=== PATIENT | female | born 1930 | race Caucasian/White ===

== ENCOUNTER 2016-09-07 11:03 | Emergency (ER) | payer MEDICARE, BC ==
--- NOTE | 2016-09-07 12:10 | UC ---
Skin Complaint HPI - HPI Summary HPI Summary: 86 YEAR OLD RASH ON THE DORSUM OF BOTH HANDS. - History of Current Complaint Time Seen by Provider: 09/07/16 12:03 Stated Complaint: RASH Onset Severity: Moderate Current Severity: Moderate - Allergy/Home Medications Allergies/Adverse Reactions: Allergies Allergy/AdvReac Type Severity Reaction Status Date / Time No Known Allergies Allergy Verified 09/07/16 13:09 Home Medications: Home Medications Acetaminophen TAB* [Tylenol TAB*] 500 mg PO TID PRN 09/07/16 [History Confirmed 09/07/16] Atenolol TAB* [Tenormin TAB* 50 MG] 100 mg PO BEDTIME 09/07/16 [History Confirmed 09/07/16] Famotidine TAB* [Pepcid 20 MG TAB*] 40 mg PO BEDTIME 09/07/16 [History Confirmed 09/07/16] Levothyroxine TAB* [Synthroid TAB*] 50 mcg PO QAM 09/07/16 [History Confirmed ] Rosuvastatin Calcium [Crestor] 10 mg PO BEDTIME 09/07/16 [History Confirmed 05/22] Review of Systems Constitutional: Negative Skin: Rash Eyes: Negative ENT: Negative Respiratory: Negative Cardiovascular: Negative Gastrointestinal: Negative Genitourinary: Negative Motor: Negative Neurovascular: Negative Musculoskeletal: Negative Neurological: Negative Psychological: Negative All Other Systems Reviewed And Are Negative: Yes PMH/Surg Hx/FS Hx/Imm Hx - Surgical History Surgical History: None Physical Exam Triage Information Reviewed: Yes Eye Exam: Normal ENT Exam: Normal Dental Exam: Normal Neck exam: Normal Neck: Positive: 1 Respiratory Exam: Normal Cardiovascular Exam: Normal Abdominal Exam: Normal Musculoskeletal Exam: Normal Neurological Exam: Normal Psychological Exam: Normal Skin: Positive: rashes Course/Dx - Diagnoses Provider Diagnoses: RASH Discharge - Discharge Plan Condition: Stable Disposition: HOME Prescriptions: Methylprednisolone [Medrol Dosepak 4 MG*] 4 mg PO .SEE LORE INSTRUCTION #21 tab Triamcinolone 0.1% CREAM (NF) [Kenalog 0.1% Cream (NF)] 1 applic TOPICAL BID # 60 gm Patient Education Materials: Acute Rash (ED) Referrals: Felecia Carvalho MD [Primary Care Provider] - If Needed
[2016-09-07 13:13] VITALS: BP 180/85
== END 2016-09-07 13:00 | disposition home or self-care (01) ==
LOC: UCCORT 11:03
DX: R21 Rash and other nonspecific skin eruption (principal)
CPT/HCPCS: 99212; G0463

== ENCOUNTER 2017-05-22 11:17 | Emergency (ER) | payer MEDICARE, BC ==
[2017-05-22 12:08] VITALS: BP 159/84
--- NOTE | 2017-05-22 12:23 | UC ---
Lower Extremity/Ankle HPI - HPI Summary HPI Summary: right foot pain x 5 days + soreness / redness and swelling of proximal great toe low grade fever, no known injury - History of Current Complaint Chief Complaint: UCLowerExtremity Stated Complaint: POSSIBLE GOUT Time Seen by Provider: 05/22/17 12:06 Hx Obtained From: Patient Onset/Duration: Gradual Onset, Lasting Days - 5, Still Present Severity Initially: Moderate Severity Currently: Moderate Pain Intensity: 10 Aggravating Factor(s): Standing, Ambulation Alleviating Factor(s): Rest, Elevation, Ice Able to Bear Weight: Yes - Allergies/Home Medications Allergies/Adverse Reactions: Allergies Allergy/AdvReac Type Severity Reaction Status Date / Time No Known Allergies Allergy Verified 05/22/17 12:05 PMH/Surg Hx/FS Hx/Imm Hx - Additional Past Medical History Additional PMH: arthritis Endocrine History: Hypothyroidism Cardiovascular History: Hypertension - Surgical History Surgical History: Yes Surgery Procedure, Year, and Place: Cataract surgery - Family History Known Family History: Positive: Hypertension - Social History Alcohol Use: Occasionally Alcohol Amount: 2 drinks/day Substance Use Type: None Smoking Status (MU): Never Smoked Tobacco Review of Systems Constitutional: Fever Skin: Negative Eyes: Negative ENT: Negative Respiratory: Negative Cardiovascular: Negative Gastrointestinal: Negative Genitourinary: Negative Is Patient Immunocompromised?: No All Other Systems Reviewed And Are Negative: Yes Physical Exam Triage Information Reviewed: Yes Appearance: Well-Appearing, No Pain Distress, Well-Nourished Vital Signs: Initial Vital Signs Temp 100 F 05/22/17 12:03 Pulse 67 05/22/17 12:03 Resp 18 05/22/17 12:03 BP 159/84 05/22/17 12:03 Pulse Ox 97 05/22/17 12:03 Eye Exam: Normal ENT: Positive: Normal ENT inspection, Hearing grossly normal, Pharynx normal Neck exam: Normal Neck: Positive: Supple, Nontender Respiratory: Positive: Chest non-tender, Lungs clear, Normal breath sounds Cardiovascular: Positive: RRR, No Murmur, Pulses Normal Musculoskeletal: Positive: Other: - right foot: + erythema extending for the big to to the 5th toe, + warm to touch, very tender and swollen Lower Extremity Course/Dx - Differential Dx/Diagnosis Provider Diagnoses: gout. cellulitis foot Discharge - Discharge Plan Condition: Stable Disposition: HOME Prescriptions: Cephalexin CAP* [Keflex CAP*] 500 mg PO TID #30 cap predniSONE TAB* [Deltasone TAB*] 40 mg PO DAILY #10 tab Patient Education Materials: Gout (ED), Cellulitis (ED) Referrals: Felecia Carvalho MD [Primary Care Provider] - 5 Days
== END 2017-05-22 12:29 | disposition home or self-care (01) ==
LOC: UCCORT 11:17
DX: M10.9 Gout, unspecified (principal); L03.115 Cellulitis of right lower limb
CPT/HCPCS: 99212; G0463

== ENCOUNTER 2017-05-31 10:38 | Emergency (ER) | payer MEDICARE, BC ==
[2017-05-31 11:59] VITALS: BP 170/66
--- NOTE | 2017-05-31 12:44 | RAD ---
INDICATION: Pain swelling and erythema of the right great toe TECHNIQUE: 3 views of the right great toe were obtained. FINDINGS: The visualized bones are normal alignment. Degenerative changes include narrowing and mild sclerotic change at the right great toe metatarsal phalangeal joint. No acute fracture is seen. There is no subcutaneous foreign body identified. IMPRESSION: Degenerative changes as described above without radiographically apparent acute abnormality.
[2017-05-31] MEDS ORDERED: Naproxen TAB* 250 MG PO ONE (12:52)
--- NOTE | 2017-05-31 12:58 | UC ---
Lower Extremity/Ankle HPI - HPI Summary HPI Summary: 87 yo female with right great toe pain and redness x 2 days no fever seen here 05/22 and rxed with prednisone and keflex 3 days ago her toe was normal looking no trauma - History of Current Complaint Chief Complaint: UCLowerExtremity Stated Complaint: RE-CK GOUT RIGHT FOOT Time Seen by Provider: 05/31/17 12:16 Hx Obtained From: Patient Onset/Duration: Gradual Onset, Lasting Days Severity Initially: Severe Severity Currently: Severe Pain Intensity: 10 Pain Scale Used: 0-10 Numeric Aggravating Factor(s): Standing, Ambulation Alleviating Factor(s): Rest Able to Bear Weight: Yes - Risk Factors Gout Risk Factors: Age Over 40, Hypertension, Hyperlipidemia - Allergies/Home Medications Allergies/Adverse Reactions: Allergies Allergy/AdvReac Type Severity Reaction Status Date / Time No Known Allergies Allergy Verified 05/31/17 11:59 PMH/Surg Hx/FS Hx/Imm Hx Previously Healthy: Yes Cardiovascular History: Hypertension - Surgical History Surgical History: Yes Surgery Procedure, Year, and Place: Cataract surgery - Family History Known Family History: Positive: Hypertension - Social History Alcohol Use: Occasionally Alcohol Amount: 2 drinks/day Substance Use Type: None Smoking Status (MU): Never Smoked Tobacco Review of Systems Constitutional: Negative Skin: Negative Eyes: Negative ENT: Negative Respiratory: Negative Cardiovascular: Negative Gastrointestinal: Negative Genitourinary: Negative Motor: Negative Neurovascular: Negative Musculoskeletal: Arthralgia Neurological: Negative Psychological: Negative Is Patient Immunocompromised?: No All Other Systems Reviewed And Are Negative: Yes Physical Exam Triage Information Reviewed: Yes Appearance: Well-Appearing, No Pain Distress, Well-Nourished Vital Signs: Initial Vital Signs Temp 99.5 F 05/31/17 11:54 Pulse 63 05/31/17 11:54 Resp 16 05/31/17 11:54 BP 170/66 05/31/17 11:54 Pulse Ox 100 05/31/17 11:54 Vital Signs Reviewed: Yes Neck: Positive: Supple Respiratory: Positive: Lungs clear, Normal breath sounds, No respiratory distress Cardiovascular: Positive: RRR Musculoskeletal: Positive: Other: - see image Psychological Exam: Normal Skin Exam: Normal Diagnostics - Radiology No standard instances Xray Interpretation: No Acute Changes Radiology Interpretation Completed By: Radiologist Lower Extremity Course/Dx - Differential Dx/Diagnosis Provider Diagnoses: acute gouty arthritis Discharge - Sign-Out/Discharge Documenting (check all that apply): Discharge - Discharge Plan Condition: Stable Disposition: HOME Prescriptions: Naproxen Sodium [Naproxen Sodium 500 MG TAB] 500 mg PO BID PRN #10 tab PRN Reason: Pain Patient Education Materials: Low Purine Diet (ED), Gout (ED) Referrals: Susanne Berman MD [Primary Care Provider] - If Needed Additional Instructions: post op shoe This needs to be rechecked in a few days If you can see a chief general pediatric clinic that would be ideal (in case you need a steroid shot ) - Billing Disposition and Condition Condition: STABLE Disposition: HOME Images Feet (Multiple View): 1 - red/warm/tender
== END 2017-05-31 13:02 | disposition home or self-care (01) ==
LOC: UCCORT 10:38
DX: Z51.89 Encounter for other specified aftercare (principal); M10.9 Gout, unspecified; I10 Essential (primary) hypertension
CPT/HCPCS: 99213; A9270-GY; G0463